=== PATIENT | female | born 1975 | race Caucasian/White ===

== ENCOUNTER → 2016-08-17 | Outpatient (CLI) | payer BC ==
[~2016-08-17] MED LIST: AMERGE2.5 MG PO; BACTRIM DS 8001 TA1 PO; HYDROCODONE BIT1 T11 PO; INDERAL40 MG PO; KEFLEX500 MG PO; LISINOPRIL10 MG PO; MOTRIN800 MG PO; ORTHO TRI-CYCLE1 TA1 PO; PRILOSEC40 MG PO
== END | disposition home or self-care (01) ==
LOC: MAMMO 08:38
DX: Z12.31 Encounter for screening mammogram for malignant neoplasm of breast (principal)